=== PATIENT | female | born 1950 | race Two or more races ===

== ENCOUNTER 2024-06-19 11:38 | Outpatient (CLI) | payer OTHER | END 2024-06-19 11:44 | disposition home or self-care (01) | LOC: MAMO-SONO 11:38 | PROVIDERS: ATTEND General Practice | DX: N64.4 Mastodynia (principal); Z12.31 Encounter for screening mammogram for malignant neoplasm of breast ==

== ENCOUNTER 2024-06-20 09:24 | Outpatient (CLI) | payer OTHER ==
[2024-06-20 10:19] LABS: PH,URINE 5.5 (5.0-8.0); URINE APPEARANCE Clear; URINE BILIRRUBIN Negative (NEGATIVE); URINE BLOOD Moderate; URINE COLOR Yellow; URINE GLUCOSE Negative (NEGATIVE); URINE LEUKOCYTE Trace; URINE NITRATE Negative; URINE PROTEIN Negative (NEGATIVE); URINE UROBILINOGEN 0.2 E.U./dl
[2024-06-20 10:21] LABS: URINE BACTERIA 55.4 uL (0.0-1933); URINE EPITHELIAL CELLS 7.2 uL (0.0-38.8); URINE RBC 25.9 uL (0.0-20.8); URINE WBC 17.3 uL (0.0-23.2)
[2024-06-20 11:17] LABS: HEMOGLOBIN 10.6 g/dL (12.0-15.00); MEAN CELL VOLUME 72.9 fL (80.00-100.00); MEAN CORPUSCULAR HEMOGLOBIN 23.5 pg (27.00-32.0); MEAN CORPUSCULAR HGB CONC 32.2 g/dl (32.0-36.0); PLATELET COUNT 201 K/uL (150-450); RED BLOOD COUNT 4.53 M/uL (4.00-6.00); RED CELL DISTRIBUTION WIDTH 15.7 % (11.5-14.5)
[2024-06-20 12:00] LABS: ALBUMIN 3.7 gm/dL (3.4-5.0); BILIRUBIN TOTAL 0.68 mg/dL (0.3-1.2); BILIRUBIN,CONJUGATED 0.18 mg/dL (0.0-0.2); BILIRUBIN,UNCONJUGATED 0.5 mg/dL (0.0-0.6); CALCIUM 9.3 mg/dL (8.5-10.1); CREATININE SERUM 0.84 mg/dL (0.55-1.02); GFR 66.46; GLOBULINA 4.3 G/DL (2.4-3.5); POTASSIUM 3.96 mEq/L (3.5-5.1); T4 TOTAL 6.92 UG/DL (4.8-13.9); TSH 0.851 uIU/mL (0.358-3.74)
[2024-06-20 12:47] LABS: T3 TOTAL 1.1 ng/ml (0.846-2.02); VITAMIN D3 25 HYDROXY 18.46 ng/ml (30-120)
== END 2024-06-20 09:25 | disposition home or self-care (01) ==
LOC: LAB 09:24
PROVIDERS: ATTEND General Practice
DX: E78.5 Hyperlipidemia, unspecified (principal); E55.9 Vitamin D deficiency, unspecified; N39.0 Urinary tract infection, site not specified; R42 Dizziness and giddiness; R10.9 Unspecified abdominal pain; Z80.3 Family history of malignant neoplasm of breast; Z00.00 Encounter for general adult medical examination without abnormal findings

== ENCOUNTER 2025-06-22 18:01 | Emergency (ER) | payer OTHER ==
[~2025-06-22] VITALS: Ht 165.1 cm; Wt 86.2 kg
[2025-06-22] MEDS ORDERED: AROMASIN25 MG (19:47)
[2025-06-22] MEDS ORDERED: DICLOFENAC SODI75 MG PO (21:56)
[2025-06-22] MEDS ORDERED: KETOROLAC TROMETHAMINE 30 MG VIAL IM ONE (22:00)
[2025-06-22] MEDS ORDERED: KETOROLAC TROMETHAMINE 30 MG VIAL ONE (22:01)
[2025-06-22] MEDS ORDERED: DEXAMETHASONE SODIUM PHOSPHATE 4 MG/ML VIAL ONE (22:01)
[2025-06-22] MEDS ORDERED: DEXAMETHASONE SODIUM PHOSPHATE 4 MG/ML VIAL IM ONE (22:15)
== END 2025-06-22 22:20 | disposition home or self-care (01) ==
LOC: ER 18:01
DX: M25.561 Pain in right knee (principal); Z85.3 Personal history of malignant neoplasm of breast; Z88.8 Allergy status to other drugs, medicaments and biological substances; M17.11 Unilateral primary osteoarthritis, right knee
CPT/HCPCS: 73564; 96372; 99283; J1100; J1885